=== PATIENT | female | born 2000 | race Two or more races ===

== ENCOUNTER 2024-09-19 15:22 | Observation (INO) | payer MEDICAID, SELFPAY ==
[2024-09-19] VITALS (44 sets, daily range): BP systolic 133–140; BP diastolic 83–85; PULSE 73–156; RESP 16–99; TEMP 36.8; O2SAT 81–100
--- NOTE | 2024-09-19 15:40 | XR_ITS ---
Examination: Transvaginal ultrasound of the pelvis, Limited Technique: Transvaginal sonographic images pelvis performed using dutton scale imaging Exam date and time: September 19, 2024 1551 hours INDICATIONS: labor with pelvic contractions today, unknown cervical length. FINDINGS: Cervix 3.4 cm closed IMPRESSION: Cervix 3.4 cm closed.
[2024-09-19 15:55] LABS: Collection Type, Urine Clean Catch
[2024-09-19 16:01] LABS: Bacteria,Urine 1+; Bilirubin,Urine Negative (Negative); Blood,Urine Negative (Negative); Clarity,Urine Clear (Clear/Hazy); Color,Urine Colorless (Lt Yel-Yel); Glucose, Urine Negative (Negative); Hyaline Casts,Urine < 1 /hpf (0-1); Ketones,Urine Negative (Negative); Leukocyte Esterase,Urine Positive (Negative); Nitrite,Urine Negative (Negative); PH,Urine 7.0 (5.0-7.0); Protein,Urine Negative (Neg - Trace); RBC,Urine 1 /hpf (0-3); Specific Gravity,Urine 1.002 (1.001-1.035); Squamous Epithelial Cell,Urine 1 /hpf (0-5); Urobilinogen,Urine Negative mg/dL (0.0-1.0); WBC,Urine 3 /hpf (0-5)
[2024-09-19] MEDS: RINGERS LACTATED 1000 ML 1,000 ML 999 ML IV (17:10)
[2024-09-19] MEDS: TERBUTALINE SULF INJ 1 MG/ML VIAL 0.25 MG SC (17:13)
--- NOTE | 2024-09-19 19:07 | PD.LDPN ---
Documentation for date of: 09/19/24 OB Labor Progress Note Pelvic Exam Dilation (cm): 0 Effacement (%): 0 station: -4 Amniotic membrane status: Intact Contractions Monitor mode: External Contraction frequency: 1.5-4 Contraction intensity: Mild Status status: Category l Assessment and Plan Comments: Triage Note Cici is a 23yo with SIUP at 33&5wk presenting to L&D for pre-term contractions. She was not feeling ctx, but she was noted on NST in office today to be having them. She notes no vaginal bleeding, no loss of fluid. Normal movement. She has had vaginal intercourse in the past 24hr. Current : She has had regular OB care with Dr. Lind's office Gestational thrombocytopenia Baby has T21 ROS negative other than what was described above. Vitals wnl, afebrile General: well developed, well nourished, no acute distress Cardiac: normal heart rate Lungs: breathing without distress Abdomen: soft, gravid, non-tender, no rebound or guarding Extremities: no edema of BLE SCE: closed/thick/high (performed 3.5hr after TVUS, indicating no change) FHRT reassuring for gestational age with +accels, no decels, mod levi [place]: ctx q3-5min (palpate very mild) Radiology: Transvaginal cervical length: Examination: Transvaginal ultrasound of the pelvis, Limited Technique: Transvaginal sonographic images pelvis performed using dutton scale imaging Exam date and time: September 19, 2024 1551 hours INDICATIONS: labor with pelvic contractions today, unknown cervical length. FINDINGS: Cervix 3.4 cm closed IMPRESSION: Cervix 3.4 cm closed. Labs: Urinalysis: neg nitrite, pos LE, 1 RBC, 3 WBC, 1 squam, 1+ bacteria Vaginitis swab: pending Assessment: Cici is a 23yo with SIUP at 33&5wk with pre-term ctx, but no evidence of pre-term labor based on normal cervical length and SCE. 1L IVF given and terbutaline 0.25mg SQ. Reassuring status. Vitals wnl, benign exam. Plan: -Betamethasone 12mg IM given. Patient instructed to return in 24 hours for 2nd dose. -Vaginitis swab pending, follow up at tomorrow's triage visit -Follow up with OBGYN within 1 week -Pelvic rest until follow up with OBGYN. No work tomorrow. -Return precautions: increasingly painful contractions, loss of fluid, vaginal bleeding, decreased movement. Emily Riley MD
[2024-09-19] MEDS: BETAMET ACET/BETAMET NA PH (Celestone) 6 MG/ML VIAL 12 MG IM (19:20)
[2024-09-20 10:31] LABS: BVAG Candida Negative (Negative); Bacterial Vaginosis Markers Negative (Negative); Candida glabrata Negative (Negative); Candida krusei PCR Negative (Negative); Trichomonas Negative (Negative)
== END 2024-09-19 19:40 | disposition home or self-care (01) ==
PROVIDERS: Admitting Provider Obstetrics & Gynecology; Visit Provider Obstetrics & Gynecology
DX: O47.03 False labor before 37 completed weeks of gestation, third trimester (principal); Z3A.33 33 weeks gestation of pregnancy
CPT/HCPCS: 59025; 59899; 76830; 81001; 81514; 96372; J0702; J3105; J7120

== ENCOUNTER 2024-09-20 18:55 | Observation (INO) | payer MEDICAID, SELFPAY ==
[2024-09-20 18:57] VITALS: BP 142/79; PULSE 104
[2024-09-20 19:01] VITALS: BP 128/70; PULSE 86
[2024-09-20 19:02] VITALS: BP 142/79; PULSE 104; RESP 18; RESP 99; TEMP 37.2; BMI 27.3
[2024-09-20 19:28] VITALS: BP 134/81; PULSE 87
[2024-09-20] MEDS: BETAMET ACET/BETAMET NA PH (Celestone) 6 MG/ML VIAL 12 MG IM (19:41)
--- NOTE | 2024-09-20 21:22 | PD.LDPN ---
Documentation for date of: 09/20/24 OB Labor Progress Note Pelvic Exam Amniotic membrane status: Intact Contractions Monitor mode: External Contraction frequency: X1 Contraction intensity: Mild Status status: Category l Assessment and Plan Comments: Patient presents for 2nd betamethasone injection. Vaginitis swab performed yesterday resulted negative for all. No OB complaints. Mild range bp repeated was normal. Reassuring status. No ctx pattern. Safe for discharge home. Routine follow up at next OB visit. Emily Riley MD
== END 2024-09-20 19:45 | disposition home or self-care (01) ==
PROVIDERS: Admitting Provider Obstetrics & Gynecology; Visit Provider Obstetrics & Gynecology
DX: O47.03 False labor before 37 completed weeks of gestation, third trimester (principal); Z3A.33 33 weeks gestation of pregnancy
CPT/HCPCS: 59025; 59899; 96372; G0378; J0702

== ENCOUNTER 2024-10-12 15:36 | Inpatient (IN) | payer MEDICAID, SELFPAY ==
[2024-10-12] VITALS (71 sets, daily range): BP systolic 127–175; BP diastolic 67–100; PULSE 68–121; RESP 18; TEMP 36.7–36.8; O2SAT 92–97; BMI 36.3; BMI 36.1
[2024-10-12 16:28] LABS: ROM Kit Lot # 58102387; ROM Swab Mixed By: JENKK; Rupture of Fetal Membranes Positive (Negative); Swb Mxed in Solvent 1 min? Yes
[2024-10-12 17:52] LABS: Basophils # (Auto) 0.0 Thou/mm3 (0.0-0.2); Basophils % (Auto) 0 % (0-2.5); Eosinophils # (Auto) 0.1 Thou/mm3 (0.0-0.5); Eosinophils % (Auto) 1 % (0-10); Hematocrit 39.7 % (36.0-46.0); Hemoglobin 13.5 g/dL (12.0-16.0); Immature Granulocytes Auto 0.05 Thou/mm3 (0.00-0.00); Lymphocytes # (Auto) 1.9 Thou/mm3 (1.0-4.8); Lymphocytes % (Auto) 20 % (10-50); Mean Corpuscular HGB Conc 34.0 g/dl (31.0-37.0); Mean Corpuscular Hemoglobin 28.7 pg (25.0-35.0); Mean Corpuscular Volume 85 fL (80-100); Monocytes # (Auto) 0.8 Thou/mm3 (0.0-0.8); Monocytes % (Auto) 8 % (0-12); Neutrophils # (Auto) 6.8 Thou/mm3 (1.8-7.7); Neutrophils % (Auto) 71 % (37-80); Nucleated Red Blood Cell # 0.00 Thou/mm3 (0.00-0.00); Nucleated Red Blood Cell % 0 /100 WBC (0); Platelet Count 83 Thou/mm3 (140-440); RDW Standard Deviation 42.4 fL (36.4-46.3); Red Blood Count 4.70 Miln/mm3 (4.00-5.20); White Blood Count 9.6 Thou/mm3 (3.6-11.0)
[2024-10-12] MEDS: Ampicillin Inj 2,000 MG in SODIUM CHLORIDE 0.9% (POP) 100 ML 200 MG IV (17:53)
[2024-10-12 18:52] LABS: Syphilis Nonreactive (Nonreactive)
--- NOTE | 2024-10-12 19:10 | PD.LDHP ---
Documentation for date of: 10/12/24 OB Labor/Induct. HPI History of Present Illness Chief complaint: SROM : 1 Para: 0 Term pregnancies: 0 pregnancies: 0 Living children: 0 History of Abortions: Spontaneous and Elective: 0 History of Vaginal deliveries: 0 History of sections: No History of : No Date of last menstrual period: 01/27/24 ISAIAS: 11/02/24 Gestational age based on last menstrual period: 37 History of present illness: Cici Diamond is a 37w () with an estimated due date of 11/02/2024, presenting to labor and delivery with leakage of fluid. Rupture of membranes was confirmed through amniocentesis. The patient has a history of thrombocytopenia in and has been followed by Maternal- Medicine (MFM). She also had asymptomatic bacteriuria during . Previous ultrasound findings were significant for absent nasal bone and suboptimal spine views in the fetus. The patient's Group B Streptococcus (GBS) status is currently unknown. Cici has been receiving care at [facility]. Her has been notable for a positive cell-free DNA test (NIPT) indicating trisomy 21 in the fetus, while her alpha-fetoprotein (AFP) test was negative. The patient presented to labor and delivery with leakage of fluid and rupture of membranes was confirmed. - Blood group (08-24-2024): A-positive - Antibody screen (08-24-2024): Negative - HIV (08-24-2024): Negative - RPR (08-24-2024): Non-reactive - Hepatitis B (08-24-2024): Negative - Rubella (08-24-2024): Immune - Hemoglobin (08-24-2024): 13.1 g/dL - AFP: Negative - NIPT: XX (female) - Amnisure (10-24-2024): Positive (confirming rupture of membranes) - GBS: Unknown - Ultrasound: Significant for absent nasal bone and suboptimal spine views History of Present Adequate Care: Yes Labs Labs: Positive: Rubella Titre, Negative: RPR, Hepatitis B, HIV, Chlamydia and Gonorrhea and Unknown: Herpes Type 1, Herpes Type 2, Group Beta Strep and Covid-19 Review of Systems Review of Systems Systems Reviewed: All systems reviewed, normal except as documented Past Medical History Surgical History SURGICAL: Negative Section Meds Home Medications and Allergies Home Medications ?Medication ?Instructions ?Recorded ?Confirmed ?Type aspirin 81 mg tablet,delayed 81 mg PO QDAY 09/19/24 09/19/24 History release vits no.129-ferrous fum tab 09/19/24 History 27 mg iron-folic acid 800 mcg tablet ( One Daily) Allergies Allergy/AdvReac Type Severity Reaction Status Date / Time No Known Allergies Allergy Verified 09/19/24 16:22 OB Exam Physical Exam Vital signs: Temp Pulse Resp BP 98.2 F 71 18 171/85 H 10/12/24 15:52 10/12/24 19:08 10/12/24 15:52 10/12/24 19:08 Constitutional Constitutional: no acute distress Routine HEENT Exam Head: Present normocephalic and atraumatic Eye: Present EOMI and PERRL ENT: Present mucous membranes moist Routine Neck Exam Neck: Present supple and trachea midline Routine Cardiovascular Exam Cardiovascular: Present RRR Routine Abdominal Exam Abdominal: Present soft and normoactive bowel sounds Detailed Labor and Delivery Exam Dilation (cm): 2 Effacement (%): 50 Cervix position: mid station: -3 Consistency: soft Presentation: Vertex Baseline heart rate: 130 monitor accelerations: 15x15 monitor decelerations: None regional intermodal truck driver variability: Average (6-10) Contraction frequency (min): 5-10 Routine Extremities Exam Extremities: Present full ROM Routine Skin Exam Skin: Present intact, dry and warm Routine Neurological Exam Neurological: Present alert, oriented X3 and CN II-XII intact Routine Psychiatric Exam Psychiatric: Present normal affect and normal thought process OB Results Labs 10/12/24 17:05 Labs: Short CBC 10/12/24 Range/Units 17:05 WBC 9.6 (3.6-11.0) Thou/mm3 Hgb 13.5 (12.0-16.0) g/dL Hct 39.7 (36.0-46.0) % Plt Count 83 L (140-440) Thou/mm3 OB Assessment & Plan Assessment and Plan (1) Rupture of membranes: Status: Acute Assessment and plan: Premature Rupture of Membranes (PPROM): - 37 weeks and 0 days gestation with confirmed rupture of membranes through amniocentesis. - Leakage of fluid presentation consistent with PPROM. - Unknown Group B Streptococcus status requiring prophylactic antibiotic treatment. Plan: - Admit patient to inpatient status. - Establish IV access with fluid rate at 125 mL/hour. - Start ampicillin per protocol for GBS prophylaxis. - Initiate continuous maternal monitoring. - Consider Pitocin augmentation if contractions pace out. - Anticipate vaginal delivery. - Prepare for potential section for obstetric indications as needed. Thrombocytopenia in : - History of thrombocytopenia in followed by Maternal- Medicine. - Potential bleeding risks during labor and delivery. Plan: - Continue MFM follow-up as previously established. - Monitor platelet counts closely during labor and delivery. Anomaly Concerns: - Previous ultrasound significant for absent nasal bone and suboptimal spine views. - NIPT results showed XX with positive screen for trisomy 21. - Alpha-fetoprotein negative. - Increased risk for chromosomal abnormalities, particularly Down syndrome. Plan: - Ensure neonatology team is aware of potential anomalies. - Prepare for potential need for immediate evaluation post-delivery. Asymptomatic Bacteriuria in : - History of asymptomatic bacteriuria in . - Increased risk of urinary tract infections and potential complications during labor and delivery. Plan: - Monitor for signs of urinary tract infection during labor. - Ensure appropriate antibiotic coverage is maintained. (2) Trisomy 21 of fetus in current beck : Status: Acute (3) Thrombocytopenia affecting : Status: Acute
[2024-10-12] MEDS: RINGERS LACTATED 1000 ML 1,000 ML 100 ML IV ×2 (20:25→22:35)
[2024-10-12] MEDS: Ampicillin Inj 1,000 MG in SODIUM CHLORIDE 0.9% (Popper) 50 ML 50 MG IV (21:23)
[2024-10-13] VITALS (196 sets, daily range): BP systolic 105–165; BP diastolic 58–116; PULSE 68–138; RESP 16; TEMP 36.6–37.2; O2SAT 90–100
[2024-10-13] MEDS: Ampicillin Inj 1,000 MG in SODIUM CHLORIDE 0.9% (Popper) 50 ML 50 MG IV ×3 (01:11→09:36)
[2024-10-13] MEDS: RINGERS LACTATED 1000 ML 1,000 ML 100 ML IV ×2 (03:57→07:19)
[2024-10-13] MEDS: LABETALOL INJ 5 MG/ML VIAL 20 ML 20 MG IVP (06:18)
--- NOTE | 2024-10-13 09:47 | ESPR_ITS ---
Documentation for date of: 10/13/24 OB Labor Progress Note Pelvic Exam Dilation (cm): 10 Effacement (%): 100 station: 0 Amniotic membrane status: Ruptured Contractions Monitor mode: External Contraction frequency: 2-4 Contraction pattern: Tachysystole Contraction intensity: Moderate Status status: Category l Assessment and Plan Comments: I assumed care of Cici at 0700 this morning. In brief, she is a 23yo with SIUP at 37wk admitted for PROM with +Amnisure. has been complicated by thrombocytopenia and she has been followed by MFM. NIPT was positive for T21, AFP test negative. Ultrasound findings were significant for absent nasal bone and suboptimal spine views in the fetus. She also had asymptomatic bacteriuria during . GBS status is unknown. Patient comfortable with epidural. She was first noted C/C/0 at 0530 and was laboring down when I evaluated her upon my arrival. I used a phone leather belt maker to discuss the mechanics of pushing with patient and we began pushing, C/C/0. After 1 hour of pushing efforts, I re-evaluated Cici and SCE is still C/C/0. She began pushing on her side since there was minimal FHR variability for a time which then improved. I again used the phone leather belt maker to discuss pushing efforts, and I mentioned my concern that if there is no progress beyond C/C/0 within the next hour, I will need to recommend a section. She voiced her understanding and desire to continue pushing. FHRT is Cat 1-2 for min-mod levi, +accels, no decels Ctx q4min Will continue pushing and closely monitor CEFM GBS treatment per protocol Safe to proceed Emily Riley MD
[2024-10-13] MEDS: MINERAL OIL 30 ML UDC TOP (12:30)
[2024-10-13] MEDS: OXYTOCIN in NS 20 units 20 UNIT/1,000 ML BAG 125 UNIT IV (13:40)
[2024-10-13] MEDS: IBUPROFEN TAB 400 MG TABLET 800 MG PO (13:50)
[2024-10-13] MEDS: BENZO/LANO/ALOE (Dermoplast) 60 GM CAN 1 SPRAY TOP (13:50)
--- NOTE | 2024-10-13 15:21 | PD.LDDELS ---
Data ([place]) Data Hx Section: No : 1 Term: 0 : 0 Livin Abortions: Spontaneous & Theraputic: 0 Delivery Data ([place]) Labor Data Initiation of labor: Spontaneous Induction/Augmentation Agent: None ROM date: 10/11/24 ROM time: 18:00 Amniotic membrane rupture type: Spontaneous Amniotic fluid description: Clear Delivery Data Onset of labor date: 10/11/24 Onset of labor time: 18:00 Complete dilation date: 10/13/24 Complete dilation time: 05:30 delivery date: 10/13/24 delivery time: 13:39 Placenta delivery date: 10/13/24 Placenta delivery time: 13:45 Stage 1 total time: Labor - Stage 1 Duration 35 hours and 30 minutes Delivered by: Emily Riley Delivery nurse: Rosalina Hutton RN [place] nurse: Owen Soni HEAD KNITTING MACHINE FIXER Support person(s) at delivery: fob Delivery Method Delivery method: Normal Vaginal Delivery Presentation: Vertex Anesthesia Type Anesthesia Type: Epidural Placenta Placenta delivery description: Spontaneous Cord blood sent to lab: Yes cord blood collection: Cord Blood Type Episiotomy Episiotomy description: None Umbilical Cord cord description: 3 Vessels Additional Procedures Cici is a 23yo [id number] s/p uncomplicated at 37wk after presenting with PROM, delivering at 1339 on 10/13/2024. On presentation, SCE was 2/50/-3. She progressed without pitocin augmentation to C/C/0. She received an epidural. She labored down from 0530 to 0730, began pushing at 0800 but then given periods of minimal FHR variability, RN pushed with her every other contraction and even though contractions were 5-7 minutes apart at times, pitocin wasn't initiated because of min-mod variability of FHRT. I assessed patient's pushing efforts several times, and spent most of her pushing time in the room assisting her since she strongly desired . Very effective epidural prevented consistent, good pushing efforts such that only 1 to 2 pushes out of every 3 to 4 were effective. Eventually, epidural needed to be turned off for patient to gain enough sensation to push effectively. Fetus would still lose station between contractions and the first 1 or 2 pushes would bring the fetus back to the previously gained station to then push from there. Pelvis was assessed to be adequate, normal EFW 6+lb, and patient made progress overall, so she was allowed to continue pushing since she strongly desired . Patient was tired, but still in good spirits. [place]-speaking nurses coached her to push as effectively as possible. Eventually, 's head delivered OA and restituted LETICIA. Right anterior shoulder delivered easily followed by posterior shoulder and corpus. had spontaneous cry and was vigorous. Apgars 7/8/9. placed on maternal abdomen where nose/mouth were suctioned and dried/stimulated. After approximately 30 seconds, cord was clamped x2 and cut by FOB. Cord blood collected for typing. With fundal massage and cord traction, placenta delivered spontaneously and intact with 3 vessel centrally inserted cord. Bimanual massage performed and IV pitocin given per protocol with fundus then firm at u-2cm and hemostasis noted. Inspection of perineum and vagina revealed a straightforward 2nd degree midline perineal laceration which was repaired in routine fashion with 3-0 vicryl- total reapproximation and hemostasis achieved. Fundus remained firm throughout. All counts correct x2. Mom and were doing well when I left the room. Emily Riley MD Complications Complications: none [place] Data ([place]) Data 's gender: Female weight (gms): 2940 g Weight (pounds): 6 lbs and 7.7 ozs 1 minute: 7 5 minutes: 8 10 minutes: 9
[2024-10-13] MEDS: DOCUSATE SOD 100 MG CAPSULE PO (20:15)
[2024-10-14] VITALS: BP 129/84; PULSE 90; RESP 16; TEMP 36.7; O2SAT 96
[2024-10-14 04:20] VITALS: BP 125/79; PULSE 90; RESP 18; TEMP 36.9; O2SAT 96
[2024-10-14 08:26] VITALS: BP 132/87; PULSE 86; RESP 17; TEMP 36.6; O2SAT 96
[2024-10-14 08:26] LABS: Basophils # (Auto) 0.0 Thou/mm3 (0.0-0.2); Basophils % (Auto) 0 % (0-2.5); Eosinophils # (Auto) 0.1 Thou/mm3 (0.0-0.5); Eosinophils % (Auto) 0 % (0-10); Hematocrit 35.4 % (36.0-46.0); Hemoglobin 12.1 g/dL (12.0-16.0); Immature Granulocytes Auto 0.11 Thou/mm3 (0.00-0.00); Lymphocytes # (Auto) 2.4 Thou/mm3 (1.0-4.8); Lymphocytes % (Auto) 12 % (10-50); Mean Corpuscular HGB Conc 34.2 g/dl (31.0-37.0); Mean Corpuscular Hemoglobin 29.0 pg (25.0-35.0); Mean Corpuscular Volume 85 fL (80-100); Monocytes # (Auto) 1.3 Thou/mm3 (0.0-0.8); Monocytes % (Auto) 6 % (0-12); Neutrophils # (Auto) 16.7 Thou/mm3 (1.8-7.7); Neutrophils % (Auto) 81 % (37-80); Nucleated Red Blood Cell # 0.00 Thou/mm3 (0.00-0.00); Nucleated Red Blood Cell % 0 /100 WBC (0); Platelet Count 93 Thou/mm3 (140-440); RDW Standard Deviation 44.1 fL (36.4-46.3); Red Blood Count 4.17 Miln/mm3 (4.00-5.20); White Blood Count 20.6 Thou/mm3 (3.6-11.0)
[2024-10-14] MEDS: IBUPROFEN TAB 400 MG TABLET 800 MG PO (11:48)
[2024-10-14 12:20] VITALS: BP 129/89; PULSE 86; RESP 18; TEMP 36.6; O2SAT 96
--- NOTE | 2024-10-14 16:04 | ESPR_ITS ---
Subjective Subjective Interval history: Patient doing well overall. Minimal discomfort. She is ambulating no lightheadedness/dizziness. Voiding spontaneously, no issues. Tolerating regular diet without nausea/vomiting. Lochia tapering as expected. No fevers/chills, no CP/SOB. Baby is under bili light. Exam Vital Signs Temp Pulse Resp BP Pulse Ox O2 Del Method 97.9 F 86 18 129/89 H 96 Room Air 10/14/24 12:20 10/14/24 12:20 10/14/24 12:20 10/14/24 12:20 10/14/24 12:20 10/14/24 12:20 Narrative Exam General: well developed, well nourished, no acute distress, conversant Cardiac: normal heart rate Lungs: breathing without distress Abdomen: soft, post-gravid, non-tender, no rebound or guarding, Fundus firm at u-3cm. Extremities: no pain with palpation of calves, trace edema of BLE Objective Labs 10/14/24 07:35 Labs: Laboratory Results - last 24 hr 10/14/24 07:35 WBC 20.6 H D RBC 4.17 Hgb 12.1 Hct 35.4 L MCV 85 MCH 29.0 MCHC 34.2 RDW Std Deviation 44.1 Plt Count 93 L Neut % (Auto) 81 H Lymph % (Auto) 12 [place] % (Auto) 6 Eos % (Auto) 0 Baso % (Auto) 0 Neut # (Auto) 16.7 H Lymph # (Auto) 2.4 [place] # (Auto) 1.3 H Eos # (Auto) 0.1 Baso # (Auto) 0.0 Immature Gran # (Auto) 0.11 H Absolute Nucleated RBC 0.00 Immature Gran % 1 H Nucleated RBC % 0 Assessment & Plan Problem List (1) care and examination immediately after delivery: Status: Acute Assessment and plan: Cici is a 23yo [id number] s/p uncomplicated after presenting with ROM, doing well on PPD 1. Vitals wnl, benign exam. Hemodynamically stable with no evidence of infection. Appropriate change in H/H from 13.5 to 12.1. Baby under bili light. complicated by: Thrombocytopenia NIPT positive for T21, AFP test negative. Ultrasound findings were significant for absent nasal bone. Plan: -Continue routine care -Regular diet -Encourage ambulation -Anticipate discharge home tomorrow if meeting all milestones (2) Rupture of membranes: Status: Acute (3) Trisomy 21 of fetus in current beck : Status: Acute (4) Thrombocytopenia affecting : Status: Acute Time Spent With Patient Time: Total time spent is greater than 50% in coordination of care (as documented) at patient's floor/unit and/or counseling patient:
[2024-10-14 16:30] VITALS: PULSE 73; RESP 17; TEMP 36.1; O2SAT 97
[2024-10-14] MEDS: HYDROcodone/APAP 5/325 TABLET 1 TAB PO (17:05)
[2024-10-14] MEDS: DOCUSATE SOD 100 MG CAPSULE PO (20:28)
[2024-10-14 20:29] VITALS: BP 131/89; PULSE 73; RESP 18; TEMP 36.6; O2SAT 98
[2024-10-15 03:51] VITALS: BP 125/82; PULSE 80; RESP 14; TEMP 36.5; O2SAT 98
[2024-10-15 08:00] VITALS: BP 134/88; PULSE 81; RESP 18; TEMP 36.7; O2SAT 98
[2024-10-15] MEDS: DOCUSATE SOD 100 MG CAPSULE PO (08:15)
--- NOTE | 2024-10-15 12:24 | PD.LDDS ---
DS: Providers Provider Date of admission: 10/12/24 16:59 Primary care physician: Physician No Primary/Family Admitting Provider: Jl Parker MD Attending Provider on Admission: Jl Parker MD Consults: 10/13/24 15:19 Referral Routine Comment: Attending Provider on DC: Emily Riley MD Discharging Provider: Emily Riley MD DS: Diagnosis Discharge Diagnosis (1) care and examination immediately after delivery: Status: Acute (2) Rupture of membranes: Status: Acute (3) Thrombocytopenia affecting : Status: Acute (4) Trisomy 21 of fetus in current beck : Status: Acute Problem List Completed Was Problem List Reviewed/Reconciled?: Yes Summary/Hosp Course Brief History: Cici Diamond is a 37w () with an estimated due date of 11/02/2024, presenting to labor and delivery with leakage of fluid. Rupture of membranes was confirmed through amniocentesis. The patient has a history of thrombocytopenia in and has been followed by Maternal- Medicine (MFM). She also had asymptomatic bacteriuria during . Previous ultrasound findings were significant for absent nasal bone and suboptimal spine views in the fetus. The patient's Group B Streptococcus (GBS) status is currently unknown. Cici has been receiving care at [facility]. Her has been notable for a positive cell-free DNA test (NIPT) indicating trisomy 21 in the fetus, while her alpha-fetoprotein (AFP) test was negative. The patient presented to labor and delivery with leakage of fluid and rupture of membranes was confirmed. --- Cici is a 23yo [id number] s/p uncomplicated after presenting with ROM, doing well on PPD 2. She has had an uncomplicated course, meeting all milestones and feels ready for discharge home. She is ambulating without lightheadedness, tolerating regular diet no n/v, spontaneously voiding without issue. She has no chest pain or shortness of breath. No fevers or chills. Minimal, appropriate discomfort. Vitals normal, benign exam. Hemodynamically stable with no evidence of infection. Appropriate change in H/H from 13.5 to 12.1. Baby needed to stay an extra day for bili light, now ready for discharge. Peripartum Data Delivery Method: Normal Vaginal Delivery Episiotomy Description: None Status at Discharge Functional status at discharge: independent ambulation Overall status at discharge: patient is back to baseline Time Spent with Patient Time attestation: Total time spent providing and/or coordinating discharge services: Exam Vital Signs Temp Pulse Resp BP Pulse Ox O2 Del Method 98.0 F 81 18 134/88 H 98 Room Air 10/15/24 08:00 10/15/24 08:00 10/15/24 08:00 10/15/24 08:00 10/15/24 08:00 10/15/24 08:00 Narrative Exam General: well developed, well nourished, no acute distress, conversant Cardiac: normal heart rate Lungs: breathing without distress Abdomen: soft, post-gravid, non-tender, no rebound or guarding, Fundus firm at u-3cm. Extremities: no pain with palpation of calves, 1+ edema of BLE Discharge Plan Plan Patient Disposition: HOME (Self Care) Patient condition on transfer: Stable Prescriptions/Referrals Prescriptions/Med Rec: New docusate sodium 100 mg Capsule 100 mg PO BID 10 Days Qty: 20 0RF ibuprofen 600 mg tablet 600 mg PO Q6H PRN (Reason: See Comments) 10 Days Qty: 20 0RF Continued One Daily 27 mg iron- 800 mcg tablet Patient Comments: Take 1 tablet by mouth once a day Discontinued aspirin 81 mg tablet,delayed release (DR/EC) 81 mg PO QDAY Patient Comments: Take 1 tablet by mouth once a day Referrals: No Primary/Family,Physician [Primary Care Provider] - Patient/Caregiver Discharge Instructions Discharge Activity: activity as tolerated and other Other Discharge Activity Instructions:: vaginal rest and no heavy lifting more than 10 pounds for 6 weeks. Descanzo vaginal no levantar objeto mas de 10 libras por 6 semanas Other Discharge Diet Instructions: regular Education Materials: After a Vaginal , Breast Care After , Nutrition While , Feel Healthy After Print Language: Swedish Activity Restrictions/Additional Instructions: follow up with your OB physician in 2 weeks for visit, call office for appointment Stand Alone Forms: Aurelia Award Info., Patient Portal Info Letter Discharge Order Discharge Orders: Discharge (Routine); Ordered 10/15/24 Ordered By: Emily Riley Planned Discharge Date 10/15/24
== END 2024-10-15 13:37 | disposition home or self-care (01) | DRG 560 ==
LOC: S4SX 10-13 15:55 → S4NX 10-13 16:19
PROVIDERS: Obstetrics & Gynecology; Admitting Provider Obstetrics & Gynecology; Visit Provider Obstetrics & Gynecology
DX: O42.92 Full-term premature rupture of membranes, unspecified as to length of time between rupture and onset of labor (principal); Z37.0 Single live birth; Z3A.37 37 weeks gestation of pregnancy; O70.1 Second degree perineal laceration during delivery; O99.12 Other diseases of the blood and blood-forming organs and certain disorders involving the immune mechanism complicating childbirth; D69.59 Other secondary thrombocytopenia; Q90.9 Down syndrome, unspecified
CPT/HCPCS: 36415; 84112; 85025; 86780; 86850; 86900; 86901; J0290; J2590; J2795; J3010; J3490; J7050; J7120; A9270; J1920